=== PATIENT | male | born 1965 | race Caucasian/White ===

== ENCOUNTER 2018-07-17 16:25 | Emergency (ER) | payer OTHER ==
[2018-07-17] MEDS ORDERED: MORPHINE 4 MG/ML 1ML VIAL/SYRINGE (J2270) As Ordered (16:41)
[2018-07-17] MEDS ORDERED: ONDANSETRON 4MG/2ML VIAL (J2405) As Ordered (16:41)
[2018-07-17] MEDS: ONDANSETRON 4MG/2ML VIAL (J2405) IV (16:45)
[2018-07-17] MEDS: MORPHINE 4 MG/ML 1ML VIAL/SYRINGE (J2270) IV ×2 (16:45→17:27)
[2018-07-17] MEDS: ADACEL/BOOSTRIX VACCINE (DIPHTH/PERTUSS/ACELL/TETANUS)0.5ML SYR (90715) IM (17:12)
[2018-07-17] MEDS: LIDOCAINE 2% MDV 20 ML VIAL SC (17:30)
== END 2018-07-17 19:26 | disposition home or self-care (01) ==
LOC: M ED 19:26
DX: S61.214A Laceration without foreign body of right ring finger without damage to nail, initial encounter (principal); W23.0XXA Caught, crushed, jammed, or pinched between moving objects, initial encounter; Y92.094 Garage of other non-institutional residence as the place of occurrence of the external cause; Y93.9 Activity, unspecified; Y99.9 Unspecified external cause status; Z85.72 Personal history of non-Hodgkin lymphomas; Z72.0 Tobacco use
CPT/HCPCS: J2270

== ENCOUNTER 2018-07-26 13:20 | Emergency (ER) | payer OTHER ==
[~2018-07-26] VITALS: Ht 180.3 cm; Wt 79.5 kg
[2018-07-26 13:20] VITALS: BP 178/100
[~2018-07-26 13:20] MED LIST: KEFL500C17 PO
== END 2018-07-26 14:11 | disposition home or self-care (01) ==
LOC: M ED 13:20
DX: S61.214A Laceration without foreign body of right ring finger without damage to nail, initial encounter (principal); X58.XXXA Exposure to other specified factors, initial encounter; Y92.89 Other specified places as the place of occurrence of the external cause

== ENCOUNTER 2018-08-01 13:31 | Emergency (ER) | payer OTHER ==
[2018-08-01 13:31] VITALS: BP 167/96
== END 2018-08-01 14:40 | disposition home or self-care (01) ==
LOC: M ED 13:31
DX: Z48.02 Encounter for removal of sutures (principal)

== ENCOUNTER → 2018-09-03 | Outpatient (CLI) | payer OTHER ==
[~2018-09-03] MED LIST changes: +E-Z-GAS II EFFERVESCENT PACKET (SODIUM BICARB./CITRIC ACID/SIMETHICONE) As Ordered ONE; +E-Z-HD 98% w/w 340GM SUSP BTL As Ordered ONE; +E-Z-PAQUE 96% w/w SUSP 176GM BTL As Ordered ONE
--- NOTE | 2018-09-03 17:56 | REP ---
Esophagram The procedure was performed under the direct supervision of Dr. Guerrero. The images were reviewed with Dr. Guerrero. A single view PA chest x-ray is submitted as a special tester film. The superior mediastinal structures are midline. The heart size is within normal limits. The lungs are clear. Liquid barium and gas producing granules were given in the erect position as well as liquid barium in the prone oblique positions in order to perform a double contrast esophagram examination. Exam is compared to a previous study performed on 06/10/2013. The during the oral and pharyngeal stages of deglutition there is aspiration with contrast seen extending into the right mainstem bronchus. This is increased since the previous exam. In there is mild narrowing and some mucosal irregularity in the cervical esophagus at the C7-T1 level as seen previously. This appears to be unchanged. This is likely due to changes due to radiation therapy for lymphoma. There is a small sliding-type hiatal hernia present. Gastroesophageal reflux is not demonstrated on this examination. Impression: 1. There is aspiration which is increased from the previous examination. There is contrast seen extending into the right mainstem bronchus. 2. There is mild narrowing and some mucosal irregularity in the cervical esophagus at the C7-T1 level which is unchanged compared to a previous exam. 0.8 minutes of fluoro time was utilized for this procedure. Reviewed by TYSHAWN Vega 09/03/2018 05:28 P Electronically Signed by Harvey Guerrero MD 09/03/2018 05:47 P
== END ==
LOC: M RAD 10:36
PROVIDERS: ATTEND Student in an Organized Health Care Education/Training Program
DX: R19.8 Other specified symptoms and signs involving the digestive system and abdomen (principal)

== ENCOUNTER → 2018-09-20 | Outpatient (CLI) | payer OTHER ==
[~2018-09-20] MED LIST changes: -E-Z-GAS II EFFERVESCENT PACKET (SODIUM BICARB./CITRIC ACID/SIMETHICONE) As Ordered ONE; -E-Z-HD 98% w/w 340GM SUSP BTL As Ordered ONE; -E-Z-PAQUE 96% w/w SUSP 176GM BTL As Ordered ONE; +ISOVUE-370 76% 100ML VIAL (Q9967) As Ordered ONE
--- NOTE | 2018-09-20 18:08 | REP ---
CT NECK WITH CONTRAST: HISTORY: Esophageal dysphagia. CONTRAST: Isovue-370, 75 mL COMPARISON: 06/10/2013 The naso-, aime- and hypopharynx, larynx and subglottic trachea are normal in appearance. The salivary and thyroid glands are normal in size and density. Small lymph nodes less than 1 cm in size are present in the internal jugular chains, posterior triangles and submandibular areas. Atherosclerotic calcification is present at the carotid bifurcations. Degenerative change is present in the cervical spine. The lung apices are clear. The visualized sinuses are clear. IMPRESSION: There is no neck mass or adenopathy. Electronically Signed by Edward Hernandez MD 09/20/2018 06:14 P
== END ==
LOC: M RAD 16:43
PROVIDERS: ATTEND Student in an Organized Health Care Education/Training Program
DX: R13.10 Dysphagia, unspecified (principal)
CPT/HCPCS: 70491; Q9967

== ENCOUNTER → 2018-10-01 | Outpatient (CLI) | payer OTHER ==
[~2018-10-01] MED LIST changes: -ISOVUE-370 76% 100ML VIAL (Q9967) As Ordered ONE
--- NOTE | 2018-10-02 10:08 | REP ---
COOKIE SWALLOW The procedure was performed under the direct supervision of Dr. briseno. The procedure was performed with Valentine Solorzano from speech pathology present. 5 ml aliquots of nectar, pudding, thin, fruit, solid, honey and he pill fragment were administered. With nectar, thin and honey consistency barium there is laryngeal aspiration. The pill fragment did get stuck in the vallecula and was eventually cleared. The detailed report of this examination will be provided by speech pathology. 3 minutes of fluoroscopy time was utilized for this procedure. Reviewed by TYSHAWN Vega 10/01/2018 04:08 P Electronically Signed by Freddie Briseno MD 10/02/2018 09:59 A
--- NOTE | 2018-10-02 10:28 | NUR ---
Pt referred for Modified Barium Swallow Study d/t worsening dysphagia since 2012 and reported as, "3-4 episodes when he wakes up in the night and feels that he can't breathe. Sits up and it goes away. Dysphagia to solid foods and pills only. He has no problems with soft foods and liquids. Feels like the food and pills get stuck at the top of the esophagus. At times will have to make himself vomit it back up so that he can eat more. No history of choking or aspiration that he is aware of. No coughing with eating". Radiation in 3528-5341 d/t lymphoma 09/20/18-CT of Neck-No neck mass or adenopathy 09/03/18-Esophagram with increase aspiration compared to 06/10/13 08/20/1329-IUJU-Cctakimgmji of thin liquids. Comp Strategies: multiple swallows, throat clear and liquid wash 06/10/1399-Gewuniuzfu-Fqhtehyjsn of thin liquids. Pt reports that he has not had pneumonia. Thin liquids at cup side- consecutive swallow with penetration, cough and minimal pooling around the vocal folds. Unable to clear with cough or throat clear. Thin liquids with Straw w/chin tuck-consecutive swallow-aspiration and no cough. Aspiration was minimal. Decreased epiglottic inversion with all thin liquid trials. Inconsistent cough response to penetration/aspiration of thin liquids. [place] thick liquid presented at cup side. Aspiration w/o cough. Decreased epiglottic inversion. Honey thick liquid presented at cup side. Decreased epiglottic inversion. Multiple swallows Soft solid mix was presented with nectar thick base. Multiple swallows but adequate Solid-barium filled cookie-Delayed transit likely d/t decreased saliva production. Multiple swallows and liquid wash needed to clear. Pooling at the UES. Liquid wash of water. Aspiration of liquid not detectable. Pt. reports that he is unable to take tablets whole. Trial today was a mock of his typical method using 1/3 of barium tablet for each trial. 1/3 Barium tablet presented w/applesauce assist. Multiple swallows and chin tuck to pass. Aspiration/penetration of applesauce is undetectable. 1/3 Barium tablet presented w/liquid wash. Tablet caught in valleculae. Unable to clear with throat clear or cough. Chin tuck with liquid wash (straw presentation) effective. Aspiration/penetration of liquid is undetectable. Recommend: D/T significant risk of dehydration with thickened liquids, it is recommended that Pt continue with thin liquids provided that he practice frequent and thorough oral care. CAT solids that are well moistened. Continue with liquid wash. Avoid dry foods. Crush meds in puree assist (applesauce, pudding, ice cream) It is highly recommended that Pt participate in dysphagia therapy to address the inadequate inversion of the epiglottis which is impeding airway protection. Therapy should also address GERD precautions (diet and behavioral). MD please consider GERD regimen d/t likely aspiration of reflux at night. Addendum: 10/02/18 at 1036 by MAURA MAHAN [facility] SP Amended: Links added.
== END ==
LOC: M ST 13:38
PROVIDERS: ATTEND Physician Assistant Medical
DX: R13.10 Dysphagia, unspecified (principal)

== ENCOUNTER 2018-10-19 11:52 | Day surgery (SDC) | payer OTHER ==
[~2018-10-19] VITALS: Ht 180.3 cm; Wt 85.2 kg
[2018-10-19] MEDS ORDERED: LIDOCAINE 2% INJ 100 MG/5 ML SDV (FOR ANES.) As Ordered ONE (13:10)
[2018-10-19] MEDS ORDERED: PROPOFOL 200 MG/20 ML VIAL As Ordered ONE (13:10)
[2018-10-19] MEDS ORDERED: fentaNYL 100 MCG/2 ML INJECTION (J3010) As Ordered ONE (13:10)
--- NOTE | 2018-10-19 13:18 | ROOR ---
Patient Name: Choco Pacheco Procedure Date: 10/19/2018 1:00 PM Date of : 1965 Age: 53 Room: [facility] Gender: Male Note Status: Finalized Procedure: Upper GI endoscopy Indications: Oropharyngeal phase dysphagia, Esophageal dysphagia, Dysphagia Providers: Jay FISHER MD Referring MD: JORGE BAILEY MD Requesting Provider: Medicines: Monitored Anesthesia Care Complications: No immediate complications. Procedure: Pre-Anesthesia Assessment: - The heart rate, respiratory rate, oxygen saturations, blood pressure, adequacy of pulmonary ventilation, and response to care were monitored throughout the procedure. The Endoscope was introduced through the mouth, and advanced to the second part of duodenum. The upper GI endoscopy was accomplished without difficulty. The patient tolerated the procedure well. Findings: One benign-appearing, intrinsic severe (stenosis; an endoscope cannot pass) stenosis was found in the upper third of the esophagus. This stenosis measured 9 mm (inner diameter) x 1 cm (in length). The stenosis was traversed after dilation. A TTS dilator was passed through the scope. Dilation with a 10-11-12 mm x 5.5 cm CRE balloon dilator was performed to 12 mm. The dilation site was examined and showed complete resolution of luminal narrowing. Estimated blood loss was minimal. The exam of the esophagus was otherwise normal. The entire examined stomach was normal. The examined duodenum was normal. Impression: - Moderate to severe benign-appearing proximal esophageal stenosis. Dilated. - Esophagus is otherwise normal (small caliber). - Normal stomach. - Normal examined duodenum. - No specimens collected. Recommendation: - Observe patient's clinical course. Jay Fisher MD Jay FISHER MD 10/19/2018 1:17:49 PM This report has been signed electronically. Number of Addenda: 0 Note Initiated On: 10/19/2018 1:00 PM Estimated Blood Loss: Estimated blood loss: none.
--- NOTE | 2018-10-19 13:51 | ROOR ---
Patient Name: Choco Pacheco Procedure Date: 10/19/2018 1:01 PM Date of : 1965 Age: 53 Room: [facility] Gender: Male Note Status: Finalized Procedure: Colonoscopy Indications: Screening for colorectal malignant neoplasm Providers: Jay FISHER MD Referring MD: JORGE BAILEY MD Requesting Provider: Medicines: Monitored Anesthesia Care Complications: No immediate complications. Procedure: Pre-Anesthesia Assessment: - The heart rate, respiratory rate, oxygen saturations, blood pressure, adequacy of pulmonary ventilation, and response to care were monitored throughout the procedure. The Colonoscope was introduced through the anus and advanced to the terminal ileum, with identification of the appendiceal orifice and IC valve. The colonoscopy was performed without difficulty. The patient tolerated the procedure well. The quality of the bowel preparation was good. Findings: The perianal and digital rectal examinations were normal. A 2 x 3 cm polypoid lesion was found at the hepatic flexure. The lesion was multi-lobulated and semi-sessile. The polyp was removed with a piecemeal technique using a hot snare. Resection and retrieval were complete. To prevent bleeding after the polypectomy, five hemostatic clips were successfully placed (MR conditional). Area was successfully injected with 5 mL Aline ink for tattooing. The exam was otherwise without abnormality on direct and retroflexion views. Impression: - Likely benign polypoid mass/lesion at the hepatic flexure. Complete removal was accomplished (visually complete removal). Clips (MR conditional) were placed. Injected/tattooed. - The examination was otherwise normal on direct and retroflexion views. Recommendation: - Await pathology results. - If the pathology report is benign, then repeat colonoscopy for retreatment in 6 months. - If the pathology report is malignant, then refer to a surgeon. - Telephone endoscopist for pathology results in 2 weeks. Jay Fisher MD Jay FISHER MD 10/19/2018 1:50:53 PM Electronically signed by Jay FISHER MD Number of Addenda: 0 Note Initiated On: 10/19/2018 1:01 PM Estimated Blood Loss: Estimated blood loss: none.
[2018-10-19 14:26] VITALS: BP 141/92
== END 2018-10-19 14:27 | disposition home or self-care (01) ==
LOC: M OPP 11:52
PROVIDERS: ATTEND Internal Medicine Gastroenterology
DX: D49.0 Neoplasm of unspecified behavior of digestive system (principal); Z12.11 Encounter for screening for malignant neoplasm of colon; K22.2 Esophageal obstruction; R13.12 Dysphagia, oropharyngeal phase; R13.14 Dysphagia, pharyngoesophageal phase; F17.210 Nicotine dependence, cigarettes, uncomplicated; Z92.3 Personal history of irradiation; Z92.21 Personal history of antineoplastic chemotherapy; Z85.72 Personal history of non-Hodgkin lymphomas; Z80.0 Family history of malignant neoplasm of digestive organs
CPT/HCPCS: 43249; 45381; 45385; 88305; J3010

== ENCOUNTER 2018-10-22 14:04 | Outpatient (RCR) | payer OTHER | END 2018-10-28 | LOC: M ST 14:04 | PROVIDERS: ATTEND Physician Assistant Medical | DX: R13.10 Dysphagia, unspecified (principal); K21.9 Gastro-esophageal reflux disease without esophagitis ==

== ENCOUNTER 2018-11-26 16:00 | Outpatient (RCR) | payer OTHER ==
--- NOTE | 2018-11-27 17:42 | NUR ---
Patient has made progress in therapy and stated that he does not feel like food gets stuck in his throat like it was perviously. He said that he can eat all consistencies but still has trouble with pills. He stated that he continues to crush medication at home and states that he is afraid to attempt to swallow pills whole because of the difficulty he had previously. ST recommends an updated MBS to determine if exercises provided in therapy have helped pharyngeal dysphagia and epiglottic inversion. Addendum: 11/27/18 at 1744 by ADWOA NARVAEZ Amended: Links added.
== END 2018-11-27 ==
LOC: M ST 16:00
PROVIDERS: ATTEND Physician Assistant Medical
DX: K21.9 Gastro-esophageal reflux disease without esophagitis (principal); R13.10 Dysphagia, unspecified

== ENCOUNTER → 2018-12-07 | Outpatient (CLI) | payer OTHER ==
--- NOTE | 2018-12-07 16:17 | NUR ---
Pt referred for Modified Barium Swallow Study following a course of dysphagia therapy targeting laryngeal strengthening exercises to improve epiglottic inversion. Pt w/ history of dysphagia since 2012 w/ reported difficulties w/ dry solids and pills. Additional history is listed in complete report below. During MBSS completed this date, pt demonstrated penetration of thin liquids, decreased epiglottic inversion, and significant pharyngeal residues w/ stasis in vallecula. Residue was cleared only after several effortful swallows and liquid washes. Chin tuck and chin up compensatory strategies were implemented throughout exam. These postural strategies were equally effective w/ minimal reduction in residuals. No aspiration was observed throughout exam. Barium tablets of increasing size (quartered to whole) were administered w/ applesauce and were passed on initial swallow. Recommendations: Continue w/ moistened regular solids as tolerated and thin liquids. Continue implementing compensatory strategies (liquid wash, chin tuck, multiple swallows). Swallow medications whole w/ puree assist or crushed as needed. Based on pt report and compared to results of MBSS 10/02/18, pt w/ improved tolerance for solid consistencies & pills. Recommend that pt continue w/ current exercise regimen and f/u w/ CONTENT ADMINISTRATOR for dysphagia tx prn. Continue w/ current GERD management regimen. Addendum: 12/07/[address] [facility] Amended: Links added.
--- NOTE | 2018-12-07 20:05 | REP ---
Examination Requested: Cookie Swallow Reason For Exam: Dysphasia Upper GI Air Contrast The procedure was performed by TYSHAWN Lowry, under the direct supervision of Dr. Guerrero. The procedure was performed with Freddie Magallanes from speech pathology present. 5 ml aliquots of thin, pudding, mixed fruit, soft food, applesauce, cookie, and pill consistency barium was administered. While drinking the thin barium with and without a straw premature spill and penetration was noted. The detailed report of this examination will be provided by speech pathology. 2.6 minutes of fluoroscopy time was utilized for this procedure. Reviewed by TYSHAWN Goncalves 12/07/2018 04:17 P Electronically Signed by Harvey Guerrero MD 12/07/2018 07:56 P
== END ==
LOC: M ST 12:17
PROVIDERS: ATTEND Physician Assistant Medical
DX: R13.10 Dysphagia, unspecified (principal)

== ENCOUNTER 2019-05-02 06:55 | Day surgery (SDC) | payer OTHER ==
[~2019-05-02] VITALS: Ht 180.3 cm; Wt 79.2 kg
[~2019-05-02 06:55] MED LIST changes: +OMEP-218 PO
[2019-05-02] MEDS ORDERED: NS 1,000 ML IV ONE (07:15)
[2019-05-02] MEDS ORDERED: PROPOFOL 200 MG/20 ML VIAL As Ordered ONE ×3 (07:53→08:10)
--- NOTE | 2019-05-02 08:19 | ROOR ---
Patient Name: Choco Pacheco Procedure Date: 05/02/2019 7:50 AM Date of : 1965 Age: 54 Room: [facility] Gender: Male Note Status: Finalized Procedure: Colonoscopy Indications: Surveillance: Personal history of piecemeal removal of large sessile adenoma on last colonoscopy (less than 6 months ago) Providers: Jay FISHER MD Referring MD: JORGE BAILEY MD Requesting Provider: Medicines: Monitored Anesthesia Care Complications: No immediate complications. Procedure: Pre-Anesthesia Assessment: - The heart rate, respiratory rate, oxygen saturations, blood pressure, adequacy of pulmonary ventilation, and response to care were monitored throughout the procedure. The Colonoscope was introduced through the anus and advanced to the cecum, identified by appendiceal orifice and ileocecal valve. The colonoscopy was performed without difficulty. The patient tolerated the procedure well. The quality of the bowel preparation was good. Findings: The perianal and digital rectal examinations were normal. A tattoo was seen at the hepatic flexure. A 4 mm polyp was found in the hepatic flexure. The polyp was semi-sessile. The polyp was removed with a cold snare. Resection and retrieval were complete. Three sessile polyps were found in the transverse colon and cecum. The polyps were diminutive in size. These polyps were removed with a cold snare. Resection and retrieval were complete. The exam was otherwise without abnormality on direct and retroflexion views. Impression: - A tattoo and scar are seen at the hepatic flexure with very small (3-4 mm) residual polypoid tissue present. Removed completely with a cold snare and retrieved. - Three diminutive polyps in the transverse colon and in the cecum, removed with a cold snare. Resected and retrieved. - The examination was otherwise normal on direct and retroflexion views. Recommendation: - Repeat colonoscopy in 1 year for surveillance after piecemeal polypectomy. Jay Fisher MD Jay FISHER MD 05/02/2019 8:19:05 AM Electronically signed by Jay FISHER MD Number of Addenda: 0 Note Initiated On: 05/02/2019 7:50 AM Estimated Blood Loss: Estimated blood loss: none.
[2019-05-02 08:48] VITALS: BP 129/95
== END 2019-05-02 08:50 | disposition home or self-care (01) ==
LOC: M OPP 06:55
PROVIDERS: ATTEND Internal Medicine Gastroenterology
DX: D37.4 Neoplasm of uncertain behavior of colon (principal); Z86.010 Personal history of colon polyps; Z80.0 Family history of malignant neoplasm of digestive organs; D12.3 Benign neoplasm of transverse colon; D12.0 Benign neoplasm of cecum; K21.9 Gastro-esophageal reflux disease without esophagitis; Z85.79 Personal history of other malignant neoplasms of lymphoid, hematopoietic and related tissues; Z92.3 Personal history of irradiation; Z92.21 Personal history of antineoplastic chemotherapy; F17.290 Nicotine dependence, other tobacco product, uncomplicated; Z79.899 Other long term (current) drug therapy

== ENCOUNTER 2019-05-23 09:38 | Day surgery (SDC) | payer OTHER ==
[~2019-05-23] VITALS: Ht 180.3 cm; Wt 79.6 kg
[2019-05-23] MEDS ORDERED: dexameTHASONE 4 MG/ML 1ML VIAL (J1100) As Ordered ONE (10:44)
[2019-05-23] MEDS ORDERED: dexameTHASONE 4 MG/ML 1ML VIAL (J1100) IV ONE (11:00)
[2019-05-23] MEDS ORDERED: METHYLENE BLUE 0.5% (5MG/ML) 10 ML AMP (PROVAYBLUE)(Q9968 PER 1MG) As Ordered ONE (12:35)
[2019-05-23] MEDS ORDERED: LIDOCAINE W/EPINEPHRINE 1% 20ML VIAL As Ordered ONE (12:35)
[2019-05-23] MEDS ORDERED: OXYMETAZOLINE NASAL SPRAY (AFRIN) As Ordered ONE (12:36)
[2019-05-23] MEDS ORDERED: fentaNYL 100 MCG/2 ML INJECTION (J3010) As Ordered ONE ×2 (13:05→13:15)
[2019-05-23] MEDS ORDERED: LIDOCAINE 2% INJ 100 MG/5 ML SDV (FOR ANES.) As Ordered ONE (13:05)
[2019-05-23] MEDS ORDERED: MIDAZOLAM INJ 2 MG/2 ML VIAL (J2250) As Ordered ONE (13:05)
[2019-05-23] MEDS ORDERED: PROPOFOL 200 MG/20 ML VIAL As Ordered ONE (13:05)
[2019-05-23] MEDS ORDERED: ROCURONIUM BROMIDE 50 MG/5 ML VIAL As Ordered ONE (13:05)
[2019-05-23] MEDS ORDERED: ONDANSETRON 4MG/2ML VIAL (J2405) As Ordered ONE (13:06)
[2019-05-23] MEDS ORDERED: SUCCINYLCHOLINE 100 MG/5 ML SYRINGE (J0330) As Ordered ONE (13:10)
[2019-05-23] MEDS ORDERED: SUGAMMADEX SODIUM 500 MG/5 ML VIAL (BRIDION) As Ordered ONE (13:20)
[2019-05-23] MEDS ORDERED: PERCOCET 5MG/325MG TAB PO PRN (14:00)
[2019-05-23] MEDS ORDERED: LR 1,000 ML IV SCH (14:00)
[2019-05-23] MEDS ORDERED: fentaNYL 100 MCG/2 ML INJECTION (J3010) IV PRN (14:00)
[2019-05-23] MEDS ORDERED: HYDROMORPHONE HCL 0.5 MG/ 0.5 ML SYRINGE (J1170 PER 1) IV PRN (14:00)
[2019-05-23 14:15] VITALS: BP 136/56
--- NOTE | 2019-05-24 12:21 | ECGEPIP ---
[facility] Test Date: 2019-05-23 Pat Name: ANEL VELEZ Department: Room: - Gender: Male [employer]: SUJATHA : 1965 Requested By: SARAH William Order Number: [id number] Reading MD: Martin San Measurements Intervals [place] Rate: 61 P: 50 NC: 198 QRS: -24 QRSD: 113 T: 46 QT: 378 QTc: 382 Interpretive Statements SINUS RHYTHM BORDERLINE LEFT AXIS DEVIATION MODERATE INTRAVENTRICULAR CONDUCTION DELAY No prior tracing for comparison. Clincal correlation advised Electronically Signed on 05-24-2019 12:21:25 EDT by Martin San
== END 2019-05-23 14:35 | disposition home or self-care (01) ==
LOC: M SDC 09:38
PROVIDERS: ATTEND Otolaryngology
DX: J38.3 Other diseases of vocal cords (principal); K21.9 Gastro-esophageal reflux disease without esophagitis; Z79.899 Other long term (current) drug therapy; Z92.3 Personal history of irradiation; Z92.21 Personal history of antineoplastic chemotherapy
CPT/HCPCS: 31536; 88305; 93005; J0330; J1100; J2250; J2405; J3010; Q9968

== ENCOUNTER → 2020-08-20 | Outpatient (REF) | payer OTHER | LOC: M SFHCPLAZ 13:15 → EEVIPCON 13:15 | PROVIDERS: ATTEND Family Medicine | DX: L02.429 Furuncle of limb, unspecified (principal) ==

== ENCOUNTER → 2020-09-22 | Outpatient (REF) | payer OTHER | LOC: M SFHCPLAZ 10:12 | PROVIDERS: ATTEND Family Medicine | DX: Z13.220 Encounter for screening for lipoid disorders (principal); Z13.1 Encounter for screening for diabetes mellitus ==

== ENCOUNTER → 2020-10-13 | Outpatient (REF) | payer OTHER ==
[2020-10-13 16:02] LABS: BASO % 0.2 % (0.0-1.0); EOS # 0.1 10^3/uL (0.0-0.5); EOS % 2.1 % (0.0-3.0); HEMATOCRIT 35.7 % (42.0-52.0); HEMOGLOBIN 11.6 g/dl (13.5-17.5); LYMPH # 1.2 10^3/uL (1.5-5.0); LYMPH % 27.7 % (24.0-44.0); MEAN CORPUSCULAR HGB CONC 32.5 g/dl (32.0-36.5); MEAN CORPUSCULAR VOLUME 98.3 fl (80.0-96.0); MONO # 0.6 10^3/uL (0.0-0.8); MONO % 14.1 % (2.0-8.0); NEUTROPHILS # 2.3 10^3/uL (1.5-8.5); PLATELET COUNT, AUTOMATED 176 10^3/uL (150-450); RED BLOOD COUNT 3.63 10^6/uL (4.30-6.10); WHITE BLOOD COUNT 4.3 10^3/uL (4.0-10.0)
[2020-10-13 16:07] LABS: ALBUMIN 3.6 GM/DL (3.2-5.2); ALT/SGPT 15 U/L (12-78); BILIRUBIN,TOTAL 0.2 MG/DL (0.2-1.0); BLOOD UREA NITROGEN 9 MG/DL (7-18); CALCIUM LEVEL 9.2 MG/DL (8.5-10.1); CARBON DIOXIDE LEVEL 29 MEQ/L (21-32); CHLORIDE LEVEL 106 MEQ/L (98-107); CREATININE FOR GFR 0.79 MG/DL (0.70-1.30); GLOMERULAR FILTRATION RATE > 60.0 (>56); GLUCOSE, FASTING 117 MG/DL (70-100); POTASSIUM SERUM 4.6 MEQ/L (3.5-5.1); SODIUM LEVEL 138 MEQ/L (136-145); TOTAL PROTEIN 7.2 GM/DL (6.4-8.2)
[2020-10-13 16:53] LABS: HIV 1&2 SCREEN CENTAUR NEGATIVE (NEGATIVE)
== END ==
LOC: M SFHCPLAZ 13:05
PROVIDERS: ATTEND Family Medicine
DX: L02.93 Carbuncle, unspecified (principal)

== ENCOUNTER → 2020-10-22 | Outpatient (REF) | payer OTHER ==
[2020-10-22 18:24] LABS: FOLATE 7.1 NG/ML (>5.4)
== END ==
LOC: M SFHCPLAZ 15:52
PROVIDERS: ATTEND Family Medicine
DX: D75.89 Other specified diseases of blood and blood-forming organs (principal)

== ENCOUNTER → 2020-10-22 | Outpatient (CLI) | payer OTHER ==
--- NOTE | 2020-10-22 17:05 | REPPI ---
INDICATION: COUGH. COMPARISON: No comparison study. TECHNIQUE: Two views.. FINDINGS: The lungs are well inflated and free of infiltrate. The pleural angles are sharp. The heart size is normal. Pulmonary vasculature is not increased. No significant bony abnormality is seen. The thoracic aorta is slightly tortuous. IMPRESSION: Negative chest x-ray. <Electronically signed by Demond Guerrero > 10/22/20 8202
== END ==
LOC: M PLAIMG 15:58
PROVIDERS: ATTEND Student in an Organized Health Care Education/Training Program
DX: R53.83 Other fatigue (principal)

== ENCOUNTER → 2020-10-26 | Outpatient (REF) | payer OTHER | LOC: M SFHCPLAZ 15:29 | PROVIDERS: ATTEND Family Medicine | DX: D64.9 Anemia, unspecified (principal); Z13.1 Encounter for screening for diabetes mellitus; Z13.220 Encounter for screening for lipoid disorders ==